=== PATIENT | male | born 1995 | race Caucasian/White ===

== ENCOUNTER 2016-11-04 11:27 | Emergency (ER) | payer OTHER ==
[~2016-11-04] VITALS: Ht 172.7 cm; Wt 64.8 kg
[2016-11-04 11:30] VITALS: Ht 172.7 cm; Wt 64.8 kg
--- NOTE | 2016-11-04 12:05 | EMERGENCY ROOM VISIT NOTE ---
ED Visit Note First contact with patient: 11:38 CHIEF COMPLAINT: mid back pain HISTORY OF PRESENT ILLNESS: This 21-year-old male patient presents to the emergency department ambulatory complaining of pain in the mid back which began last year but has continued to worsen. The pain was gradual in onset, is now constant and worse with movement. The patient states he has continued to do very strenuous lifting of weights and physical activity. The pain is always worse after lifting. Particularly when he engages the trapezius and rhomboid muscles. The patient states that sometimes he gets a tingling sensation in the muscle. He denies any neck pain. He denies any low back pain. The patient notes the pain as 0/10. The patient has taken nothing for relief of the pain. The patient denies any bowel or bladder difficulties. There has been no leg numbness or weakness, and no change in sensation. No nausea or vomiting or abdominal pain. No chest pain or shortness of breath. The patient has not had prior back injuries. REVIEW OF SYSTEMS: No dysuria or increased urinary frequency. A 10 system review of systems was completed and pertinent positives and negatives are in the HPI. ALLERGIES: No known drug allergies MEDICATIONS: None PMH: None SOCIAL HISTORY: The patient lives locally. He is a smoker PHYSICAL EXAM: VITALS: Vitals are noted on the nurse's note and reviewed by myself. No abnormalities noted. GENERAL: This is a 21-year-old male, in no acute distress, nondiaphoretic, well- developed well-nourished. SKIN: The skin was without rashes, erythema, edema, or bruising. Capillary refill less than 2 seconds. NECK: Supple without nuchal rigidity. No cervical spine tenderness. No paraspinous muscle tenderness. HEART: Regular rate and rhythm without murmurs gallops or rubs. LUNGS: Clear to auscultation bilaterally without wheezes, rales or rhonchi. ABDOMEN: Positive bowel sounds x 4. Normal tympanic percussion. Soft, nontender, without masses or organomegaly. Alcaraz sign negative. MUSCULOSKELETAL: No muscle atrophy, erythema, or edema noted of the back. There is no tenderness over the lumbar spinous processes. There is now tenderness over the paraspinous muscles. There is no tenderness over the thoracic spine but there is moderate left-sided paraspinous muscles. There are minimal muscle spasms present. The patient is slow to move around with maximum tenderness with flexion and extension of the arms. Negative straight leg raise test. NEURO: Patient was alert and oriented to person place and time. Normal sensation to light and sharp touch. Deep tendon reflexes 2+ in the upper extremities. Strength is 5/5 in the lower extremity is bilaterally. EMERGENCY DEPARTMENT COURSE: The patient presents to the emergency department for evaluation of mid back pain. The patient has pain over the trapezius muscle on the left. The patient states the pain started sometime ago but has been worse as he has continued to lift weights. He states that doing rows with improper form seems to make it hurt the most. The patient does seem to have some spasm. This is likely muscular in nature. He does not have any neurologic deficit on exam. He does not have any chest pain or trouble breathing. The patient was advised to stop any upper body activity for the next 2 weeks to allow this to fully heal. He should continue anti- inflammatories and was given a prescription for Flexeril. He should return to the ER with worsening symptoms or see his family doctor after 2 weeks if symptoms persist. THORACIC SPINE 3 VIEWS HISTORY: Pain mid back and left paraspinous muscle pain COMPARISON: None. FINDINGS: There is no fracture. No subluxation. Disc spaces are preserved. IMPRESSION: No fracture or subluxation within the thoracic spine. Current/Historical Medications Scheduled Cyclobenzaprine Hcl (Flexeril), 10 MG PO TID Allergies Coded Allergies: Cat Dander (Verified Allergy, Unknown, ., 11/04/16) Vital Signs Date Time Temp Pulse Resp B/P Pulse Ox O2 Delivery O2 Flow Rate FiO2 11/04/16 11:30 36.8 65 18 146/81 99 Room Air Departure Information Impression Primary Impression: Trapezius muscle spasm Additional Impression: Trapezius muscle strain Dispostion Home / Self-Care Condition GOOD Prescriptions Cyclobenzaprine Hcl (FLEXERIL) 10 Mg Tab 10 MG PO TID for 7 Days, #21 TAB Prov: Etta Salinas PA-C 11/04/16 Referrals No Doctor, Assigned (PCP) Patient Instructions ED Spasm Muscle, My [facility] Additional Instructions Motrin 600 mg every 6-8 hours for pain/inflammation Flexeril every 8 hours for muscle spasm/pain; it will make you sleepy No upper body lifting more than 5 pounds for 2 weeks Return with worsening symptoms Follow up with a family doctor in 2 weeks if symptoms persist Problem Qualifiers
--- NOTE | 2016-11-04 12:35 | DIAGNOSTIC IMAGING REPORT ---
THORACIC SPINE 3 VIEWS HISTORY: Pain mid back and left paraspinous muscle pain COMPARISON: None. FINDINGS: There is no fracture. No subluxation. Disc spaces are preserved. IMPRESSION: No fracture or subluxation within the thoracic spine. Electronically signed by: Miguelangel Mosher M.D. 11/04/2016 12:34 PM Dictated Date/Time: 11/04/2016 12:33 PM
[2016-11-04] MEDS ORDERED: CYCL10TA6 PO (12:46)
[2016-11-04 13:05] VITALS: BP 146/81; PULSE 65; TEMP 36.8; O2SAT 99
== END 2016-11-04 13:07 | disposition home or self-care (01) ==
LOC: C.EDB 11:29 → C.EDD 13:07
DX: S46.812A Strain of other muscles, fascia and tendons at shoulder and upper arm level, left arm, initial encounter (principal); X58.XXXA Exposure to other specified factors, initial encounter; M62.838 Other muscle spasm; F17.210 Nicotine dependence, cigarettes, uncomplicated

== ENCOUNTER 2017-05-03 17:26 | Emergency (ER) | payer OTHER ==
[~2017-05-03] VITALS: Ht 167.6 cm; Wt 68.5 kg
[2017-05-03 17:30] VITALS: Ht 167.6 cm; Wt 68.5 kg
--- NOTE | 2017-05-03 18:17 | DIAGNOSTIC IMAGING REPORT ---
R FINGER(S) MIN 2 VIEWS ROUTINE HISTORY: 21 years-old Male R thumb pain acute right thumb pain status post trauma COMPARISON: Right finger radiographs 04/30/2016 TECHNIQUE: 3 views of the right thumb FINDINGS: There is an acute transverse fracture involving the proximal metaphyseal portion of the first distal phalanx demonstrating mild apex dorsal angulation of approximately 13 degrees and ulnar displacement of 1.5 mm. Mild associated soft tissue swelling. No intra-articular fracture extension. IMPRESSION: Acute transverse fracture of the first distal phalanx with minimal displacement and angulation as above. The above report was generated using voice recognition software. It may contain grammatical, syntax or spelling errors. Electronically signed by: Jorge Grace M.D. 05/03/2017 6:16 PM Dictated Date/Time: 05/03/2017 6:14 PM
[2017-05-03] MEDS ORDERED: HYDR-5688 PO (18:26)
[2017-05-03] MEDS ORDERED: NORCO 5/325MG HOME PACK PO ONE (19:15)
[2017-05-03 19:28] VITALS: BP 122/82; PULSE 62; TEMP 36.8; O2SAT 96
--- NOTE | 2017-05-04 01:08 | EMERGENCY ROOM VISIT NOTE ---
ED Visit Note First contact with patient: 17:32 Chief Complaint: I think I broke my right thumb. History of Present Illness: Mr. Choudhary is a 21-year-old male who ambulates into the ED complaining of right thumb pain over the distal phalanx and interphalangeal joint. Patient reports less than an hour ago he was playing basketball. He doesn't remember any specific injury but does remember his thumb was "jammed." While playing. After the game he went home and while eating he reports he developed severe right thumb pain area Currently he places his discomfort over the distal phalanx and the interphalangeal joint. He describes the pain as sharp and throbbing. He rates his discomfort 3/10. He reports when he attempts to move the interphalangeal joint he does have a shooting pain that goes from the joint superiorly over the posterior aspect of the hand and wrist to the mid forearm. His pain worsens with palpation of the distal phalanx and interphalangeal joint and any attempts at flexion and extension of the interphalangeal joint. He has not identified any alleviating factors related to the pain. He has not taken a medication for pain prior to arrival at the hospital. Associated with his pain he reports he is having some mild paresthesias over the distal aspect of the distal phalanxes. He denies forearm pain, wrist pain, hand pain, other finger pain. Additionally he denies any previous significant injuries or surgeries to the right thumb. Review of Systems: As noted above in history of present illness. Past Medical History: Patient denies. Current Medications: Patient denies. Allergies to Medications: Patient denies. Social History: Patient is currently University student; he feels safe in his home environment; he denies tobacco and alcohol use. Physical Examination: Vital Signs: Date Time Temp Pulse Resp B/P (MAP) Pulse Ox O2 Delivery O2 Flow Rate FiO2 05/03/17 19:28 36.8 62 16 122/82 96 05/03/17 18:37 62 16 122/82 96 05/03/17 17:30 36.8 94 18 139/88 99 Room Air GENERAL: 21-year-old male in mild distress due to pain, nontoxic-appearing, afebrile and hemodynamically stable. NEUROLOGICAL: Awake, alert and oriented to person, place and time. Answering questions appropriately and following commands. SKIN: Warm, dry and pink. No soft tissue injuries. RIGHT HAND: Deformity noted over the interphalangeal joint of the thumb. Minimal tenderness over the first metacarpal, the first proximal phalange and the distal phalange of the thumb. There is mild swelling around the interphalangeal joint. The distal phalanxes of the thumb is mildly dorsally angulated and there is mild soft tissue swelling in the area. No tenderness over the MCP joint. Full range of motion of the MCP joint. Decreased range of motion due to pain of the interphalangeal joint. Throughout the finger the skin was warm and pink and capillary refill was brisk. He noted a mild numbness sensation over the lateral aspect of the distal phalanx. Range of motion testing was deferred due to pain. ED Course: Patient is assessed as noted above. Patient's medication list was reviewed. Patient was offered pain medication and refused. Right Thumb X-Rays: Were read by myself and the radiologist showing acute transfer fracture involving the proximal metaphyseal portion of the first distal phalanx. Radiologist notes dorsal angulation of approximately 13 and ulnar displacement of 1.5 mm and no intra-articular extension. Patient was placed in a metal finger splint secured with an Carlos Eduardo bandage. Patient was educated about today's findings and instructed on his treatment plan ; he verbalizes understanding and agreement with this plan. Clinical Impression: Right thumb distal phalanx fracture. Disposition: Patient discharged home in stable condition; prior to departure he was reassessed and subjectively reported his pain had increased to 10/10. Plan: Comfort measures including rest, ice, splint use and a sliding pain medication scale of ibuprofen, acetaminophen and [place] were discussed with the patient; appropriate narcotic precautions were discussed with the patient and his name was checked on the state database and no red flags were noted. Patient was encouraged to follow-up with [facility] for definitive care and treatment. Patient was encouraged return ED for worsening/uncontrolled pain, worsening numbness/tingling or any new/concerning symptoms.
== END 2017-05-03 18:37 | disposition home or self-care (01) ==
LOC: C.EDB 17:26 → C.EDD 18:37
DX: S62.521A Displaced fracture of distal phalanx of right thumb, initial encounter for closed fracture (principal); X58.XXXA Exposure to other specified factors, initial encounter; Y93.67 Activity, basketball; Y99.8 Other external cause status

== ENCOUNTER → 2017-05-22 | Outpatient (CLI) | payer OTHER ==
[~2017-05-22] MED LIST: HYDR-5688 PO
--- NOTE | 2017-05-22 10:49 | DIAGNOSTIC IMAGING REPORT ---
R FINGER(S) MIN 2 VIEWS HISTORY: 22 years-old Male F/U RIGHT THUMB FX follow-up study in a patient with right first proximal phalanx fracture COMPARISON: Finger radiographs 05/03/2017 TECHNIQUE: 3 views of the right thumb FINDINGS: Subacute transverse fracture of the first proximal phalanx is redemonstrated which demonstrates unchanged alignment and minimal apex dorsal angulation. Mild healing callus formation. Decreased amount of soft tissue swelling. No opaque foreign body. IMPRESSION: Mild healing of the subacute first proximal phalanx fracture with unchanged alignment. The above report was generated using voice recognition software. It may contain grammatical, syntax or spelling errors. Electronically signed by: Jorge Grace M.D. 05/22/2017 10:47 AM Dictated Date/Time: 05/22/2017 10:46 AM
== END | disposition home or self-care (01) ==
LOC: C.RDSM 16:44
PROVIDERS: ATTEND Physician Assistant
DX: Z09 Encounter for follow-up examination after completed treatment for conditions other than malignant neoplasm (principal); S62.511A Displaced fracture of proximal phalanx of right thumb, initial encounter for closed fracture; X58.XXXA Exposure to other specified factors, initial encounter

== ENCOUNTER → 2017-05-25 | Outpatient (CLI) | payer OTHER ==
--- NOTE | 2017-05-25 12:11 | DIAGNOSTIC IMAGING REPORT ---
LUMBAR SPINE MIN 4 VIEWS HISTORY: 22 years-old Male Low back pain x 7 months; no known injury acute low back pain without known injury. COMPARISON: Acute abdominal series radiographs 01/08/2015 TECHNIQUE: 5 views of the lumbar spine FINDINGS: There are 5 nonrib-bearing lumbar type vertebral segments. There is no acute fracture, subluxation or significant degenerative changes. No spondylolysis or spondylolisthesis. Soft tissues are unremarkable. IMPRESSION: No acute fracture, subluxation or significant degenerative changes. The above report was generated using voice recognition software. It may contain grammatical, syntax or spelling errors. Electronically signed by: Jorge Grace M.D. 05/25/2017 12:09 PM Dictated Date/Time: 05/25/2017 12:08 PM
== END | disposition home or self-care (01) ==
LOC: C.RDSM 11:30
PROVIDERS: ATTEND Family Medicine
DX: M54.5 Low back pain (principal)

== ENCOUNTER → 2017-05-28 | Outpatient (CLI) | payer OTHER ==
--- NOTE | 2017-05-28 16:34 | DIAGNOSTIC IMAGING REPORT ---
MRI OF THE THORACIC SPINE WITHOUT CONTRAST CLINICAL HISTORY: 8 month history of thoracic spine pain. No recent trauma. COMPARISON: Thoracic spine radiographs November 04, 2016. TECHNIQUE: Utilizing a 1.5 Bess magnet and dedicated coil, multiplanar, multiecho imaging of the thoracic spine was performed without IV contrast. FINDINGS: Alignment of the thoracic spine is anatomic. Vertebral body heights are maintained. No marrow edema or marrow replacement is identified. There is no intracanalicular mass or fluid collection. No disc herniation is identified within the thoracic spine. Central canal and neural foramen are patent. There are no abnormalities of the paravertebral soft tissues. IMPRESSION: Normal MRI of the thoracic spine. Electronically signed by: Gold Mcdaniels M.D. 05/28/2017 4:33 PM Dictated Date/Time: 05/28/2017 4:29 PM
== END | disposition home or self-care (01) ==
LOC: C.MRIBC 15:07
PROVIDERS: ATTEND Family Medicine
DX: M54.6 Pain in thoracic spine (principal); M54.5 Low back pain

== ENCOUNTER → 2017-06-05 | Outpatient (CLI) | payer OTHER ==
--- NOTE | 2017-06-05 09:18 | DIAGNOSTIC IMAGING REPORT ---
R FINGER(S) MIN 2 VIEWS HISTORY: 22 years-old Male RIGHT THUMB FX acute right thumb pain with nondisplaced fracture. COMPARISON: Right thumb radiographs 05/22/2017 TECHNIQUE: 3 views of the right thumb FINDINGS: There is mildly progressive healing with marginal sclerosis involving the transverse subacute appearing nondisplaced fracture involving the proximal metaphyseal portion of the first distal phalanx. No significant soft tissue swelling or opaque foreign body. Increased lucency of the distal phalanx is likely secondary to disuse osteopenia. IMPRESSION: 1. Mild progressive healing of the subacute nondisplaced fracture of the first proximal phalanx . 2. Mild disuse osteopenia. The above report was generated using voice recognition software. It may contain grammatical, syntax or spelling errors. Electronically signed by: Jorge Grace M.D. 06/05/2017 9:16 AM Dictated Date/Time: 06/05/2017 9:13 AM
== END | disposition home or self-care (01) ==
LOC: C.RDSM 12:22
PROVIDERS: ATTEND Physician Assistant
DX: S62.524D Nondisplaced fracture of distal phalanx of right thumb, subsequent encounter for fracture with routine healing (principal); X58.XXXD Exposure to other specified factors, subsequent encounter